=== PATIENT | male | born 1990 | race Caucasian/White ===

== ENCOUNTER 2020-08-12 07:22 | Day surgery (SDC) | payer OTHER, SELFPAY ==
[2020-08-12] VITALS (13 sets, daily range): BP systolic 114–152; BP diastolic 65–107; PULSE 60–92; RESP 16–20; TEMP 36.3–36.6; O2SAT 92–100
--- NOTE | ~2020-08-12 | CT_ITS ---
EXAMINATION: CT abdomen pelvis w con DATE: 08/12/2020 08:52 INDICATION: Abdominal pain TECHNIQUE: Computed tomography (CT) of the abdomen and pelvis was performed with 100 cc Omnipaque 350 intravenous contrast. The dose-length product was 829.38 mGy-cm. Automated exposure control and iter ative reconstruction technique were employed. COMPARISON: None. FINDINGS: Lung bases are unremarkable. No significant pleural or pericardial effusion. Heart size is normal. No significant pleural or pericardial effusion. No significant vascular abnormality. No lymph adenopathy. There is a thickened enhancing appendix with mild surrounding periappendiceal infiltration, consisten t with appendicitis. No evidence for perforation or abscess. Appendix measures 10 mm transversely. Focal fatty infiltration of the liver near the falciform ligament. The spleen, pancreas, adrenal glan ds and left kidney are unremarkable. There is a 2 cm right renal cyst. Gallbladder is present. No abn ormal pelvic masses or fluid collections. Nonobstructive bowel gas pattern. Moderate colonic fecal lo ading. No lytic or blastic lesions. No evidence for spondylolysis. No free air or free fluid. IMPRESSION: 1. Acute uncomplicated appendicitis. Reviewed, dictated and finalized at location B.
--- NOTE | 2020-08-12 08:16 | ED_ITS ---
HPI - Abdominal Pain General Chief Complaint: Abdominal Pain Stated Complaint: abd pain Time Seen by Provider: 08/12/20 08:03 Related Data Home Medications Medication Instructions Recorded Confirmed atorvastatin 40 mg PO HS 08/12/20 08/12/20 metformin 500 mg PO TID 08/12/20 08/12/20 Allergies Allergy/AdvReac Type Severity Reaction Status Date / Time No Known Allergies Allergy Verified 08/12/20 07:24 [facility] Social History Social History Gender identity (if verbalized by the patient): Male Course Vital Signs Vital signs: Vital Signs Temperature 36.3 C L 08/12/20 07:26 Pulse Rate 68 08/12/20 07:26 Respiratory Rate 20 08/12/20 07:26 Blood Pressure 152/100 H 08/12/20 07:26 Pulse Oximetry 99 08/12/20 07:26 Temperature 36.3 C L 08/12/20 07:26 Pulse Rate 68 08/12/20 07:26 Respiratory Rate 20 08/12/20 07:26 Blood Pressure 152/100 H 08/12/20 07:26 Pulse Oximetry 99 08/12/20 07:26 Discharge Plan Discharge Prescriptions: No Action atorvastatin 40 mg Tablet 40 mg PO HS RF: 0 metformin 500 mg Tablet 500 mg PO TID RF: 0
[2020-08-12] MEDS: SODIUM CHLORIDE 0.9% IV 1,000 ML 999 ML IV CONT (08:18)
[2020-08-12 08:27] LABS: Basophils Percent Auto 0.2 % (0.2-1.2); Eosinophils Absolute Auto 0.2 K/mm3 (0-0.3); Eosinophils Percent Auto 1.3 % (0-4.4); Hematocrit 47.5 % (42.0-52.0); Hemoglobin 16.4 g/dL (14.0-18.0); Immature Granulocyte Absolute 0.05 K/mm3 (0.00-0.031); Immature Granulocyte Percent A 0.3 % (0-0.5); Lymphocytes Absolute Auto 3.15 K/mm3 (0.9-3.2); Mean Corpuscular HGB Conc 34.5 g/dl (32-36); Mean Corpuscular Hemoglobin 28.1 pg (26-34); Mean Corpuscular Volume 81.3 fl (80-100); Mean Platelet Volume 11.4 fl (7.4-10.4); Monocytes Absolute Auto 1.2 K/mm3 (0.1-0.6); Monocytes Percent Auto 7.1 % (2.6-8.5); Neutrophils Absolute Auto 11.9 K/mm3 (1.3-6.7); Neutrophils Percent Auto 72.1 % (45.5-73.1); Platelet Count Result 237 k/mm3 (150-375); Red Blood Count 5.84 M/mm3 (4.6-6.20); Red Cell Distribution Width 13.1 % (11.5-14.5); White Blood Count 16.5 K/mm3 (4.5-10.0)
[2020-08-12 08:29] LABS: Add Urine Microscopic? NO; Appearance Urine Clear (Clear); Bilirubin Urine Negative (Negative); Blood Urine Negative (Negative); Color Urine Yellow (Yellow); Glucose Urine UA Negative (Negative); Ketones Urine Negative (Negative); Leukocyte Esterase Ur Negative LEU/UL (Negative); Nitrate Urine Negative (Negative); Protein Urine Negative (Negative); Specific Grav Ur 1.019 (1.001-1.035); Urobilinogen Urine Negative mg/dL (<2.0)
--- NOTE | 2020-08-12 08:29 | ED.ABDPAIN ---
HPI - Abdominal Pain General Chief Complaint: Abdominal Pain Stated Complaint: abd pain Time Seen by Provider: 08/12/20 08:03 Source: patient and RN notes reviewed Mode of arrival: ambulatory Limitations: no limitations and clinical condition History of Present Illness HPI narrative: Patient is 29 years old white male drove himself to the emergency room because of general abdominal pain started 4-hour prior to arrival to the emergency room associated with nausea. Patient denies any fever, chills, vomiting, radiation of pain, having similar pain, diarrhea, constipation, urinary symptoms. Denied any history of abdominal surgery. History of diabetes. Patient does not smoke or drink or uses drugs. Patient declined any pain medication at this time. Related Data Home Medications Medication Instructions Recorded Confirmed atorvastatin 40 mg PO HS 08/12/20 08/12/20 metformin 500 mg PO TID 08/12/20 08/12/20 Allergies Allergy/AdvReac Type Severity Reaction Status Date / Time No Known Allergies Allergy Verified 08/12/20 07:24 Review of Systems Review of Systems: Narrative: CONSTITUTIONAL: Denies fever, chills, or sweats. EYES: Denies visual changes, redness, or discharge. ENT: Denies rhinorrhea, congestion, sore throat, or otalgia. CARDIOVASCULAR: Denies chest pain, palpitations, or edema. RESPIRATORY: Denies cough or dyspnea. GASTROINTESTINAL: Denies abdominal pain, nausea, vomiting, or diarrhea. GENITOURINARY: Denies dysuria or hematuria. SKIN: Denies rash or itching. MUSCULOSKELETAL: Denies back pain, joint pain, or myalgia. NEUROLOGIC: Denies headache, numbness, or weakness. PSYCHIATRIC: Denies anxiety or depression. PMFSH Social History Social History Gender identity (if verbalized by the patient): Male Exam Narrative: Exam Narrative: General appearance: Well-developed, well-nourished Skin: Normal color Head: Normocephalic, nontraumatic Eyes: Clear conjunctiva ENT: Oropharynx normal, ears normal, nose normal Neck: Supple, nontender Chest and respiratory: Airway patent, no respiratory distress, no accessory muscle use Heart: Regular rate/rhythm Abdomen: Soft, mild diffuse tenderness Vascular: Normal peripheral pulses, normal capillary refill. Musculoskeletal: Normal range of motion, nontender back Neurologic: Alert and oriented ?3, [employer] is normal as tested, no gross motor deficit Course Course Emergency Course: Stable Vital Signs Vital signs: Vital Signs Temperature 36.3 C L 08/12/20 07:26 Pulse Rate 68 08/12/20 07:26 Respiratory Rate 20 08/12/20 07:26 Blood Pressure 152/100 H 08/12/20 07:26 Pulse Oximetry 99 08/12/20 07:26 Temperature 36.3 C L 08/12/20 07:26 Pulse Rate 64 08/12/20 09:30 Respiratory Rate 20 08/12/20 09:30 Blood Pressure 150/97 H 08/12/20 09:30 Pulse Oximetry 99 08/12/20 09:30 MDM - Abdominal Pain MDM Narrative Medical decision making narrative: Generalized abdominal pain. Labs, CT abdomen pelvis with IV contrast, IV fluid ordered. My concern is the differential diagnosis below. Further plan to follow Differential Diagnosis Differential diagnosis: Likely abdominal pain, acute appendicitis, constipation, diverticulitis and pancreatitis Lab Data Result diagrams: 08/12/20 08:19 08/12/20 08:19 Labs: Lab Results 08/12/20 08/12/20 08/12/20 Range/Units 08:19 08:19 08:19 WBC 16.5 H (4.5-10.0) K/mm3 RBC 5.84 (4.6-6.20) M/mm3 Hgb 16.4 (14.0-18.0) g/dL Hct 47.5 (42.0-52.0) % MCV 81.3 (80-100) fl MCH 28.1 (26-34) pg MCHC 34.5 (32-36) g/dl RDW 13.1 (11.5-
[2020-08-12 08:38] LABS: Alanine Aminotransferase 23 U/L (4-50); Albumin Level 4.7 g/dL (3.5-5.1); Alkaline Phosphatase 108 U/L (38-126); Anion Gap 7 mmol/L (8-16); Aspartate Amino Transferase 27 U/L (17-59); Bilirubin,Total 0.5 mg/dL (0.2-1.3); Blood Urea Nitrogen 14 mg/dL (9-20); Calcium 9.4 mg/dL (8.4-10.2); Carbon Dioxide 28 mmol/L (22-30); Chloride 104 mmol/L (98-107); Estimated CRCL calculation 139 ml/min; Estimated Glomerular Filt Rate > 60; Glucose 119 mg/dL (75-110); Sodium 139 mmol/L (137-145)
[2020-08-12 09:17] LABS: Potassium 3.6 mmol/L (3.4-5.0)
--- NOTE | 2020-08-12 10:44 | PM.IMHP ---
H&P: HPI History of Present Illness Date/Time: 08/12/20 10:44 Pt is a 29 y/o M presenting c diffuse abdominal pain since this am. Pt reports the pain was present when he awoke this am. Pt reports no appetite, some mild nausea. Pt reports pain is worst in RLQ. Pt denies any previous episodes. Pt reports he felt well all day yesterday. Chief Complaint: acute appendicitis Review of Systems Constitutional: Constitutional: Reports anorexia, Denies chills, Denies excessive sweating, Denies fatigue, Denies fever(s), Denies headache(s), Denies lethargy, Reports poor appetite, Denies weakness, Denies weight gain and Denies weight loss Eyes: Eyes: Reports no additional eye complaints ENT: Reports system reviewed and no additional complaints, except as documented Cardiovascular: Cardiovascular: Reports no additional cardiovascular complaints Respiratory: Respiratory: Reports no additional respiratory complaints Gastrointestinal: Gastrointestinal: Reports as per HPI Genitourinary: Genitourinary: Reports no additional male genitourinary complaints Musculoskeletal: Musculoskeletal: Reports no additional musculoskeletal complaints Integumentary/Breasts: Skin/Breast: Reports system reviewed and no additional complaints, except as docu Neurologic: Reports system reviewed and no additional complaints, except as documented Psychiatric: Psychiatric: Reports no additional psychiatric complaints Endocrine: Endocrine: Reports no additional endocrine complaints Hematologic/Lymphatic: Hematologic/Lymphatic: Reports no additional hematologic/lymphatic complaints Allergic/Immunologic: Allergic/Immunologic: Reports no additional allergic/immunologic complaints [facility] Social History Social History Gender identity (if verbalized by the patient): Male Comments PMH - DM, hyperlipidemia PSxH - coccyx wound s/p debridement, testicular torsion FH - denies any CRC, IBD SH - social ETOH Meds Home Medications and Allergies Home Medications Medication Instructions Recorded Confirmed Type atorvastatin 40 mg PO HS 08/12/20 08/12/20 History metformin 500 mg PO TID 08/12/20 08/12/20 History Allergies Allergy/AdvReac Type Severity Reaction Status Date / Time No Known Allergies Allergy Verified 08/12/20 07:24 Vital Signs Vital Signs - 24 hr 08/12/20 07:26 08/12/20 09:30 Temperature 36.3 C L Pulse Rate 68 64 Respiratory Rate 20 20 Blood Pressure 152/100 H 150/97 H Pulse Oximetry 99 99 Exam Const: General: cooperative, well developed and acute distress mild Nutritional Appearance: obese Orientation/consciousness: patient oriented x3 Limitations: no limitations HENMT: Head: normal to inspection, normocephalic and atraumatic Ears: hearing grossly normal bilaterally General nose exam: Normal external nose present Face and sinus: normal facial exam Mouth: Yes Normal oral and palatal mucosa present and Yes moist mucous membranes Eyes: General: appearance normal, both eyes and all related structures Pupils: Equal, round and reactive pupils present EOM: EOMs intact bilaterally Neck: Neck: normal visual inspection, full ROM and no lymphadenopathy Chest: Chest palpation & inspection: normal inspection of the chest Resp: Effort & Inspection: normal respiratory effort Auscultation: clear to auscultation bilaterally Cardio: Jugular venous distension: no JVD Rate: regular rate Rhythm: regular rhythm GI: Inspection: normal to inspection and distended GI Palp: Yes Soft to palpation, Yes Tenderness to palpation present (GI) and Yes Guarding due to palpation present (GI) Other: soft, sl dist, focal peritonitis in RLQ Skin: General skin exam: normal color and no rashes or lesions noted Neuro: General: patient oriented x3 and CN's II-XI intact bilaterally Extrem: General: normal to inspection and full ROM H&P: Results Labs Labs: Short CBC 08/12/20 Range/Units
--- NOTE | 2020-08-12 10:50 | WPDHPUPDATE1 ---
History and Physical Update Update Date/Time: 08/12/20 10:50 History and Physical has been reviewed, including an updated exam of the patient. There are NO changes in the patient's condition. Risks, benefits, and alternatives have been discussed and questions answered. Patient agrees to proceed with procedure.
--- NOTE | 2020-08-12 13:09 | PC.NURSE ---
Jemal has not returned call. Called inhouse [phone], called exchange [phone]. prepared foods supervisor called OR [phone] to get a room in pre-op for pt. as no call has been returned.
[2020-08-12] MEDS: LACTATED RINGERS 1,000 ML 30 ML IV CONT ×2 (13:15→15:16)
--- NOTE | 2020-08-12 13:40 | WPDANESEPPF ---
Anes - Initial Pre Proc Eval Procedure: Operation Date: 08/12/20 14:15 Proposed Procedures p Laparoscopic Appendectomy - Tara Joaquin MD Date/Time: 08/12/20 13:40 Surgeon: Tara Joaquin MD Pre Op Diagnosis: abd pain Patient Data Age: 29 Gender: M Height: 1.78 m Weight: 91 kg Last Vital Signs Temp 36.3 C L 08/12/20 07:26 Pulse 62 08/12/20 11:00 Resp 18 08/12/20 11:00 BP 147/89 H 08/12/20 11:00 Pulse Ox 99 08/12/20 11:00 Allergies Allergy/AdvReac Type Severity Reaction Status Date / Time No Known Allergies Allergy Verified 08/12/20 07:24 Home Medications Medication Instructions Recorded Confirmed Type atorvastatin 40 mg PO HS 08/12/20 08/12/20 History metformin 500 mg PO TID 08/12/20 08/12/20 History Laboratory Tests 08/12/20 08/12/20 08/12/20 08:19 08:19 08:19 WBC 16.5 K/mm3 H K/mm3 (4.5-10.0) RBC 5.84 M/mm3 M/mm3 (4.6-6.20) Hgb 16.4 g/dL g/dL (14.0-18.0) Hct 47.5 % % (42.0-52.0) MCV 81.3 fl fl (80-100) MCH 28.1 pg pg (26-34) MCHC 34.5 g/dl g/dl (32-36) RDW 13.1 % % (11.5-14.5) Plt Count 237 k/mm3 k/mm3 (150-375) MPV 11.4 fl H fl (7.4-10.4) Immature Gran % (Auto) 0.3 % % (0-0.5) Neut % (Auto) 72.1 % % (45.5-73.1) Lymph % (Auto) 19.0 % % (18.3-44.2) Porter % (Auto) 7.1 % % (2.6-8.5) Eos % (Auto) 1.3 % % (0-4.4) Baso % (Auto) 0.2 % % (0.2-1.2) Lymph # (Auto) 3.15 K/mm3 K/mm3 (0.9-3.2) Porter # (Auto) 1.2 K/mm3 H K/mm3 (0.1-0.6) Eos # (Auto) 0.2 K/mm3 K/mm3 (0-0.3) Baso # (Auto) 0.0 K/mm3 K/mm3 (0.0-0.1) Abs Immat Gran (auto) 0.05 K/mm3 H K/mm3 (0.00-0.031) Absolute Neuts (auto) 11.9 K/mm3 H K/mm3 (1.3-6.7) Absolute Nucleated RBC 0.0 K/mm3 K/mm3 (0.0-0.012) Nucleated RBC % 0.0 % % (0.0-0.2) Sodium 139 mmol/L mmol/L (137-145) Potassium 3.6 mmol/L mmol/L (3.4-5.0) Chloride 104 mmol/L mmol/L (98-107) Carbon Dioxide 28 mmol/L mmol/L (22-30) Anion Gap 7 mmol/L L mmol/L (8-16) BUN 14 mg/dL mg/dL (9-20) Creatinine 0.70 mg/dL mg/dL (0.7-1.3) Estim Creat Clear Calc 139 ml/min ml/min Estimated GFR > 60 (59 - ) Glucose 119 mg/dL H mg/dL (75-110) Calcium 9.4 mg/dL mg/dL (8.4-10.2) Total Bilirubin 0.5 mg/dL mg/dL (0.2-1.3) AST 27 U/L U/L (17-59) ALT 23 U/L U/L (4-50) Alkaline Phosphatase 108 U/L U/L (38-126) Total Protein 7.0 g/dL g/dL (6.3-8.2) Albumin 4.7 g/dL g/dL (3.5-5.1) Urine Color Yellow (Yellow) Urine Appearance Clear (Clear) Urine pH 6.0 (5.0-9.0) Ur Specific Golva 1.019 (1.001-1.035) Urine Protein Negative mg/dL mg/dL (Negative) Urine Glucose (UA) Negative mg/dL mg/dL (Negative) Urine Ketones Negative mg/dL mg/dL (Negative) Ur Blood (Man) Negative (Negative) Urine Nitrate Negative (Negative) Urine Bilirubin Negative (Negative) Urine Urobilinogen Negative mg/dL mg/dL (<2.0) Leukocyte Esterase Rfl Negative ELIZABETH/UL ELIZABETH/UL (Negative) Patient hx anesthesia problems: none Family hx anesthesia problems: none PMFSH Past Medical History Medical History (Updated 08/12/20 @ 13:39 by Ariel Dunham DO) Asthma childhood Diabetes type 2, controlled Hyperlipidemia Social History Social History Gender identity (if verbalized by the patient): Male Anes - Eval Final PreProcedure Day of Procedure 08/12/20 13:40 Patient weight: overweight Heart: regular rate and rhythm Lungs: clear t
[2020-08-12 14:01] LABS: Glucose Point of Care 94 (65-105)
[2020-08-12] MEDS: BUPIVACAINE/EPINEPHRINE 0.5% 30 ML VIAL INFILTRATE (14:29)
--- NOTE | 2020-08-12 14:51 | PM.PROC ---
Procedure Note - Detailed Date of procedure: 08/12/20 Pre-op diagnosis: abd pain acute appendicitis Post-op diagnosis: same Procedure performed: Laparoscopic appendectomy Description of procedure: The patient was brought into the operating room placed in the supine position. After adequate induction of general anesthesia, the patient was prepped and draped in normal sterile fashion. A time-out was then done to verify the patient's identity as well as the procedure being performed. I began by making a 5 mm incision in the infraumbilical region. A 5 mm Optiview trocar within used to gain access into the peritoneal cavity. Once into the peritoneal cavity, CO2 gas was insufflated. After adequate pneumoperitoneum was achieved, the laparoscope was placed into the 5 mm trocar. Under direct visualization, I went ahead and placed a further 5 mm suprapubic port as well as a 12 mm port in the left lower abdomen. At this point, I was able to visualize cecum. The cecum was retracted both cephalad and medial, and this allowed us to expose the appendix. The appendix was noted to be very dilated, injected, and inflamed. There was no obvious perforation of the appendix. I then grasped the appendix near the tip of the appendix and retracted both anterior and lateral. This allowed exposure of the base of the appendix with the cecum. I then created a window with the [place] dissector between the appendix and the mesoappendix at the base of the appendix. Once this was achieved, a vascular staple load on the Endo-KEVON was placed through the 12 mm port site and subsequently transected the mesoappendix. I then reloaded the Endo-KEVON with a blue staple load and transected the base of the appendix with the cecum. Once the appendiceal specimen was completely detached, a Endo pouch was placed through the 12 mm port site. The appendix was placed into the Endo pouch and removed through the 12 mm port site. The appendix will now be sent to pathology for further review. I then visualized the right lower quadrant, both staple lines were noted to be intact and hemostatic. No other pathology was noted in the right lower quadrant or pelvis. I then moved the laparoscope to the 5 mm suprapubic port. I then visualized our port of entry at the 5 mm infraumbilical site. No iatrogenic injury or other pathology was seen in the upper abdomen. I then desufflated the abdomen and all ports were removed. The fascia of the 12 mm port site was closed with an 0 Vicryl figure of 8 suture. All port sites were then closed with 4 O Monocryl subcuticular suture. The patient tolerated the procedure well and was extubated in the operating room postoperatively. The patient will be transferred to the recovery room in stable condition. Anesthesia: GETA Surgeon: Tara Joaquin MD Estimated blood loss (mL): 5 Drains: No Packing: No Pathology: yes Complications: No immediate complications Condition: stable Disposition: PACU Findings: Acute uncomplicated appendicitis
[2020-08-12 15:01] LABS: Glucose Point of Care 130 (65-105)
[2020-08-12] MEDS: MEPERIDINE HCL INJ (*CRX) 50 MG/ML AMPUL 25 MG IV PUSH (15:13)
== END 2020-08-12 17:05 | disposition home or self-care (01) ==
LOC: ANHED 10:23 → ANHSURGERY 13:15
PROVIDERS: Emergency Provider Emergency Medicine; PCP Family Medicine; Visit Provider Surgery
PROC: 0DTJ4ZZ Resection of Appendix, Percutaneous Endoscopic Approach (ICD-10-PCS; CPT 44970; principal; 2020-08-12 14:15)
DX: K35.30 Acute appendicitis with localized peritonitis, without perforation or gangrene (principal); K38.8 Other specified diseases of appendix; R10.9 Unspecified abdominal pain; R11.0 Nausea; E11.9 Type 2 diabetes mellitus without complications; J45.909 Unspecified asthma, uncomplicated; E78.5 Hyperlipidemia, unspecified
CPT/HCPCS: 44970; 36415; 74177; 80053; 81003; 82948; 85025; 88304; 96361; 96365; 99285; J1100; J1170; J2175; J2250; J2405; J2543; J2704; J2710; J3010; J7030; J7120; Q9967

== ENCOUNTER 2023-11-02 03:49 | Emergency (ER) | payer OTHER, SELFPAY ==
--- NOTE | ~2023-11-02 | XR_ITS ---
XR knee LT 3V 11/02/2023 06:45 Indication: Left knee pain Procedure: 3 views left knee Comparison: No prior studies for comparison. Findings: No fracture, subluxation or dislocation. No significant joint effusion. No foreign bodies. Impression: 1: No acute bone or joint abnormality. Reviewed, dictated and finalized at location B. Impression: 1: No acute bone or joint abnormality.
[2023-11-02 03:58] VITALS: BP 147/99; PULSE 89; RESP 20; TEMP 36.7; O2SAT 94
[2023-11-02 07:42] VITALS: BP 130/95; PULSE 82; RESP 16; O2SAT 98
--- NOTE | 2023-11-02 07:51 | ED.EXTPRO ---
HPI - Extremity Problem General Chief complaint: Extremity Problem,Nontraumatic Stated complaint: left knee pain Time Seen by Provider: 11/02/23 07:41 Source: patient Mode of arrival: ambulatory Limitations: no limitations History of Present Illness HPI Narrative: 32-year-old male presents with left knee pain starting yesterday. 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 Pain is present inferior to the left knee. History of surgical repair on the right we which he states 2 screws replaced but denies any prior injury or intervention on the left knee. More paresthesias. He took a total of for wound 10 tablets yesterday. He does note the pain is better as he walks. Related Data Home Medications Medication Instructions Recorded Confirmed atorvastatin 40 mg tablet 40 mg PO HS 08/12/20 08/31/20 metformin 500 mg tablet 500 mg PO TID 08/12/20 08/31/20 Allergies Allergy/AdvReac Type Severity Reaction Status Date / Time No Known Allergies Allergy Verified 08/31/20 09:41 [facility] Past Medical History Medical History Asthma childhood Diabetes type 2, controlled Hyperlipidemia Surgical History Surgical History History of laparoscopic appendectomy 08/12/20 History of right knee surgery reports 2 screws Social History Social History Smoking status: Current every day smoker Smokeless tobacco user: chewing tobacco Occupation/Education: occupation 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 HEAD: Normocephalic, atraumatic. EYES: Non injected, non icteric ENT: Nares clear, no rhinorrhea or epistaxis. NECK: Supple. CHEST: Speaking in full sentences. No respiratory distress. HEART: Regular rate and rhythm. . ABDOMEN: Soft, nondistended. EXTREMITIES: Normal range of motion. No edema. Patient experiences pain with extension of his left knee but he is able to perform this maneuver. 5/5 strength with right knee flexion extension. No laxity on provocative anterior/posterior drawer maneuvers. No TTP of the left patella but some TTP at inferior pole. SKIN: Warm, dry, no rash. NEURO: No focal deficits. Alert and oriented x3. Able to bear weight and ambulate. Sensation intact to gross touch/symmetric in bilateral lower extremities. PSYCH: Normal mood and affect. Course Vital Signs Vital signs: Vital Signs Temperature 98.0 F 11/02/23 03:58 Pulse Rate 89 11/02/23 03:58 Respiratory Rate 20 11/02/23 03:58 Blood Pressure 147/99 H 11/02/23 03:58 Pulse Oximetry 94 11/02/23 03:58 Oxygen Delivery Room Air 11/02/23 03:58 Temperature 98.0 F 11/02/23 03:58 Pulse Rate 82 11/02/23 07:42 Respiratory Rate 16 11/02/23 07:42 Blood Pressure 130/95 H 11/02/23 07:42 Pulse Oximetry 98 11/02/23 07:42 Oxygen Delivery Room Air 11/02/23 03:58 MDM - Extremity (Nontraumatic) MDM Narrative Medical decision making narrative: Patient presents with left knee pain starting yesterday. 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 In the emergency department he is afebrile with vital signs notable for hypertension. Based on history and physical exam I do suspect patellar tendinopathy versus patellar tendinitis. Location less suspicious for patellofemoral syndrome though still considered. Do not suspect patellar tendon rupture though may have partial tear (no high riding patella on Xray however). Reassuring physical exam otherwise. Patient advised on heat, NSAIDs, and quadriceps strengthening exercises.
[2023-11-02] MEDS: HYDROcodone/acetaminophen (*CRX) 5-325 MG TABLET 1 TAB PO (08:11)
== END 2023-11-02 08:25 | disposition home or self-care (01) ==
PROVIDERS: Emergency Provider Student in an Organized Health Care Education/Training Program
DX: M76.52 Patellar tendinitis, left knee (principal); E78.5 Hyperlipidemia, unspecified; E11.9 Type 2 diabetes mellitus without complications; J45.909 Unspecified asthma, uncomplicated; F17.220 Nicotine dependence, chewing tobacco, uncomplicated; Z79.84 Long term (current) use of oral hypoglycemic drugs; Z79.899 Other long term (current) drug therapy
CPT/HCPCS: 73562; 99283; A9270